=== PATIENT | male | born 1980 | race Caucasian/White ===

== ENCOUNTER 2016-11-26 05:38 | Day surgery (SDC) | payer BC ==
[2016-11-25 09:19] VITALS: BMI 21.5
[2016-11-26] VITALS (12 sets, daily range): BP systolic 111–149; BP diastolic 65–85; PULSE 70–102; RESP 11–23; Ht 180.3 cm; Wt 0.5 kg
[~2016-11-26] VITALS: Ht 180.3 cm; Wt 0.5 kg
[2016-11-26] MEDS ORDERED: DEXTROSE 5%-0.45% NACL 1,000 ML IV SCH (06:13)
[2016-11-26] MEDS ORDERED: CEFAZOLIN 2 GM/50 ML (PMX) 50 ML IVPB ONE (06:13)
[2016-11-26] MEDS ORDERED: BACITRACIN 50000 UNITS INJ ONE (06:57)
[2016-11-26] MEDS ORDERED: POLYMYXIN B 500000 UNIT INJ ONE (07:06)
[2016-11-26] MEDS ORDERED: BUPIVACAINE 0.25%/EPI (SDV) 30 ML INJ ONE (07:06)
[2016-11-26] MEDS ORDERED: LIDOCAINE 2% (SDV) 5 ML INJ ONE (07:25)
[2016-11-26] MEDS ORDERED: ROCURONIUM 50 MG INJ ONE (07:25)
[2016-11-26] MEDS ORDERED: SUCCINYLCHOLINE CHLORIDE 100 MG/5 ML SYG IV ONE (07:25)
[2016-11-26] MEDS ORDERED: PROPOFOL 20 ML ONE (07:25)
[2016-11-26] MEDS ORDERED: MIDAZOLAM 1 MG/ML 2 ML INJ ONE (07:26)
[2016-11-26] MEDS ORDERED: FENTAnyl 50 MCG/ML VIAL ONE (07:26)
[2016-11-26] MEDS ORDERED: SOD CHLORIDE 0.9% 1,000 ML IV SCH (07:30)
--- NOTE | 2016-11-26 07:37 | HPN ---
Date/Time of Note Date/Time of Note DATE: 11/26/16 TIME: 07:36 Interval H&P Admission Note Pt. seen H&P reviewed: No system changes TEENA TORRES MD Nov 26, 2016 07:37
[2016-11-26] MEDS ORDERED: CEFAZOLIN 1 GM INJ ONE (07:57)
[2016-11-26] MEDS ORDERED: DEXAMETHASONE 4 MG/ML 1 ML INJ ONE (08:04)
[2016-11-26] MEDS ORDERED: FAMOTIDINE 20 MG INJ ONE (08:04)
[2016-11-26] MEDS ORDERED: ONDANSETRON 4 MG INJ ONE (08:04)
[2016-11-26] MEDS ORDERED: OXYCODONE/ACETAMINOPHEN (5/325) TAB PO PRN ×2 (08:30)
[2016-11-26] MEDS ORDERED: MEPERIDINE 25 MG INJ IV PRN (08:30)
[2016-11-26] MEDS ORDERED: PROCHLORPERAZINE 10 MG INJ IV PRN (08:30)
[2016-11-26] MEDS ORDERED: ONDANSETRON 4 MG INJ IV PRN ×2 (08:30→09:30)
[2016-11-26] MEDS ORDERED: FENTAnyl 50 MCG/ML VIAL IV PRN ×3 (08:30)
[2016-11-26] MEDS ORDERED: DIPHENHYDRAMINE 50 MG INJ IV PRN (08:30)
[2016-11-26] MEDS ORDERED: HYDROmorphONE (0.2 MG/ML) 10ML SYG IV PRN ×3 (08:30)
[2016-11-26] MEDS ORDERED: SODIUM CL BACTERIOSTATIC 30 ML INJ IV ONE (08:31)
[2016-11-26] MEDS ORDERED: BACITRACIN/POLYMYXIN 28.35 GM OINT TOP ONE (08:44)
[2016-11-26] MEDS ORDERED: KETOROLAC 30 MG INJ ONE (08:59)
[2016-11-26] MEDS ORDERED: EPHEDrine SULFATE 50 MG/5 ML SYG ONE (09:01)
[2016-11-26] MEDS ORDERED: NEOSTIGMINE 3 MG/3 ML SYRINGE ONE (09:02)
[2016-11-26] MEDS ORDERED: GLYCOPYRROLATE 0.4 MG INJ ONE (09:03)
--- NOTE | 2016-11-26 09:10 | OPR ---
Date/Time of Note Date/Time of Note DATE: 11/26/16 TIME: 09:05 Operative Report Procedure Date: Nov 26, 2016 Preoperative Diagnosis 1. Pilonidal cyst with sinus Postoperative Diagnosis 1. Pilonidal cyst with sinus Operation Performed 1. Excision of pilonidal cyst with sinus 2. Local flap advancement 3. Implantation of biological extracellular matrix Surgeon: TEENA TORRES MD Anesthesia: general Anesthesiologist: DIANNA HENAO MD Estimated Blood Loss: minimal Specimens Pilonidal cyst with sinus Complications: None Pt Condition Post Procedure: stable Disposition: PACU Indications The patient is an 36-year-old male who presented to the office with a several year history of a pilonidal cyst with sinus. He was therefore scheduled for elective pilonidal cystectomy. All risks and benefits of the procedure including, but not limited to: Wound infection, excessive bleeding, postoperative seroma/hematoma formation, prolonged wound healing, need for meticulous hygiene of the area in order to keep the area hair free, cyst/sinus recurrence, etc. were all explained to the patient in full detail. He fully understood and wished to proceed with the procedure. Informed consent was obtained. Operative\Procedure Findings Pilonidal cyst with sinus Procedure Description Patient was brought to the operating room and kept on his operating room stretcher. Bilateral sequential compression devices were placed on both lower extremities. A dose of broad-spectrum perioperative intravenous antibiotics was given. General anesthesia was induced with the patient on his stretcher. After the induction of smooth general endotracheal anesthesia the patient was then positioned in the prone jackknife position on the operating table. The buttocks was shaved and taped apart. The buttock area was then prepped and draped in standard surgical fashion. There were several midline pits as well as a draining sinus just superior to the right of the gluteal cleft. An elliptical incision was made using a 15 blade scalpel encompassing the sinus tract and extending down to inferior of the midline pits in the gluteal cleft. The area was anesthetized with 0.25% Marcaine with epinephrine prior to incision. Incision was taken down through the skin and into the subcutaneous tissues using Bovie electrocautery. Dissection was continued down to the level of the presacral fascia. The specimen was then transected at its base and passed off the field. Marking stitch was used to ramez the superior aspect. Local advancement flaps were then raised circumferentially to aid in tension- free closure. The wound cavity was then irrigated using antibiotic irrigation and a pulse lavage machine. Hemostasis was inspected for and noted to be total. To aid in wound regeneration and minimize the risk of infection 1000 mg of acellular biological extracellular matrix was implanted on top of the presacral fascia and the deep tissues. The deep tissues were then reapproximated using interrupted 2-0 Vicryl sutures. The dermal layer was reapproximated using interrupted 3-0 Vicryl sutures. Further local anesthesia was applied on the skin and the incision site. The skin was reapproximated using interrupted 2-0 nylon sutures such that the incision laid just off the midline. Incision was then cleaned and sterile dressings were applied. The patient was then awoken from anesthesia and transported to the recovery room in stable condition. All counts were correct at the end of the case 2. TEENA TORRES MD Nov 26, 2016 09:10
[2016-11-26] MEDS ORDERED: IBUPROFEN 600 MG TAB PO PRN (09:30)
[2016-11-26] MEDS ORDERED: morphine 2 MG INJ IV PRN (09:30)
[2016-11-26] MEDS ORDERED: HYDROCODONE/APAP (5/325) TAB PO PRN ×2 (09:30)
[2016-11-26] MEDS ORDERED: KETOROLAC 30 MG INJ IV PRN (09:30)
== END 2016-11-26 10:27 | disposition home or self-care (01) ==
LOC: SDS 05:38
PROVIDERS: ATTEND Surgery
DX: L05.91 Pilonidal cyst without abscess (principal); L05.92 Pilonidal sinus without abscess
CPT/HCPCS: 11772; J0690; J1100; J1885; J2175; J2250; J2405; J2710; J3010; J7999; Q4118